=== PATIENT | male | born 2000 | race Hispanic/Latino ===

== ENCOUNTER 2025-01-10 12:19 | Emergency (ER) | payer OTHER, SELFPAY ==
[2025-01-10 12:22] VITALS: BP 127/80
--- NOTE | 2025-01-10 13:02 | ED.GENMED ---
History of Present Illness
General
Chief Complaint: Musculo-Skeletal Complaint
Source: patient
Time Seen by Provider: 01/10/25 12:26
History of Present Illness
History of Present Illness:
24-year-old male with no significant past medical history presents to the ER for evaluation of right foot and ankle pain following an injury that occurred while playing in a soccer game last night. Patient states most of the pain is located in the
dorsal aspect of his foot, increased pain while ambulating. No other injuries were sustained. Denies any previous history of injury or surgery
Past History
Past History
ED Past Medical History: None
ED Past Surgical History: Appendectomy
Social History
Tobacco: Non-smoker
Alcohol: None
Drug: None
Personal: Single
Living: with family
Review of Systems
Review of Systems
All Other Systems: ROS reviewed and negative except as documented in HPI and ROS
Phy Exam
Physical Exam
Physical Exam:
GENERAL: Alert , in no apparent distress
EYE: conjunctiva clear
Head: Normocephalic atraumatic
NECK: Supple,
ENT: mmm.
LUNGS: no acute respiratory distress
NEUROLOGICAL: Alert and oriented
SKIN: Warm and dry, skin intact.
MUSCULOSKELETAL: Right foot/ankle: Mild to moderate soft tissue swelling with ecchymosis over the dorsum of the foot from the second metatarsal through the fourth metatarsal. Diffuse tenderness. Easily palpable pedal and tibial pulse. Cap refill
less than 2 seconds. Sensation grossly intact light touch. No proximal tib-fib's. No calf tenderness or edema. No laxity of the calcaneal tendon. Patient allows for full range of motion.
PSYCH: Normal and appropriate interaction.
Scores
Heart Failure Risk
Heart Failure Risk Score: Not Applicable
Heart Score for Chest Pain Patients
STEMI patient?: Not applicable
Withdrawal Assessment of Alcohol
Withdrawal Assessment Completed?: Not applicable
Course
Orders/Labs/Results
Orders:
Orders
01/10/25 12:23
Ankle, Right 3 view CR [CR Ankle - Right Min 3 Views *] Urgent
Comment:
Reason For Exam: pain, trauma
CR Foot - Right Min 3 Views Urgent
Comment:
Reason For Exam: pain, trauma
01/10/25 13:02
Tres Wrap Right-Treatment ONCE
Crutches-Treatment ONCE
Vital Signs
Initial and Last Documented VS:
Initial Vital Signs
Temp Pulse Resp BP Pulse Ox
97.9 F 67 18 127/80 98
01/10/25 12:22 01/10/25 12:22 01/10/25 12:22 01/10/25 12:22 01/10/25 12:22
Last Documented Vital Signs
Temp Pulse Resp BP Pulse Ox
97.9 F 67 18 127/80 98
01/10/25 12:22 01/10/25 12:22 01/10/25 12:22 01/10/25 12:22 01/10/25 13:04
MDM/Problems Addressed
Differential Diagnosis Includes:
- Sprain
- Contusion
- Fracture
- No concern for neurovascular compromise
MDM/Problems Addressed:
24-year-old male presenting the ER for evaluation of right foot and ankle pain following injury last night while playing soccer. X-ray was ordered and while I read this as no acute fracture radiology felt that there could be a potential
nondisplaced fracture of the proximal phalanx right second digit. Patient did have some tenderness in this area so I did advise about the possibility of a nondisplaced fracture. Encouraged close outpatient follow-up with orthopedics, ice and
elevation, NSAIDs and Tylenol as needed for pain. Patient otherwise stable for discharge and aware of return precautions.
*Radiology
Radiology exam reviewed: preliminary read by ED provider (No acute fracture) and radiology read reviewed (Possible fracture of the proximal phalanx of the second toe)
*Pulse Oximetry
SaO2: 98
Oxygen Mode of Delivery: Room air
Patient hypoxic: no
*Critical Care Note
Total Time (30-74mins, 75-104mins- exclusive of procedures): Not Applicable
ED Attending Note
-
Portions of this chart may have been created with voice recognition software.� Occasional wrong word or��sound alike� substitutions may have occurred due to the inherent limitations of voice recognition software.
Discharge Plan
Departure
Patient Disposition: Home (Routine Discharge)
Date of Disposition: 01/10/25
Time of Disposition: 13:02
Patient with high blood pressure during this ER visit?: No
Discharge Problem:
Sprain of foot, right
Instructions: Sprain (DC)
Referrals:
NONE,* [Family Provider, Internal Medicine]
Daryl Goodwin MD [Active, Orthopedics]
Stand Alone Forms: Return to Work
Interventions
Interventions:
*Nursing Disposition Last Done: 01/10/25 13:20
ED-Musculoskeletal Assessment Last Done: 01/10/25 12:56
Discharge Date and Time
Print Language: LATVIAN
== END 2025-01-10 13:20 | disposition home or self-care (01) ==
LOC: EMR 12:19
PROVIDERS: EMERGENCY PHYSICIAN Student in an Organized Health Care Education/Training Program
DX: S93.601A Unspecified sprain of right foot, initial encounter (principal); X58.XXXA Exposure to other specified factors, initial encounter; Y93.66 Activity, soccer
CPT/HCPCS: 99283; 73610; 73630

== ENCOUNTER 2025-04-04 15:27 | Emergency (ER) | payer OTHER, SELFPAY ==
[2025-04-04 15:35] VITALS: BP 130/81
[2025-04-04 15:58] LABS: Hematocrit 39.5 % (39.0-52.0); Hemoglobin 13.4 g/dL (13.0-18.0); Mean Corp Hgb Conc. 33.9 g/dL (33.0-37.0); Mean Corpuscular Volume 87.6 fL (80.0-94.0); Nucleated Red Blood Cells % 0 % (-); Platelet Count 292 10^3/uL (130-400); Red Cell Dist. Width 13.2 % (11.5-14.5)
[2025-04-04 16:19] LABS: Troponin I 0.017 ng/ml
[2025-04-04 16:20] LABS: ALT (SGPT) 26 U/L (0-50); AST (SGOT) 26 U/L (17-59); Albumin 5.1 g/dl (3.5-5.0); Alkaline Phosphatase 84 U/L (38-126); Blood Urea Nitrogen 8 mg/dl (9-20); Calcium 10.0 mg/dl (8.4-10.2); Carbon Dioxide 24 mmol/L (22-30); Chloride 107 mmol/L (98-107); Glucose 101 mg/dl (70-99); Potassium 4.1 mmol/L (3.5-5.1); Sodium 139 mmol/L (135-145); Total Protein 7.7 g/dl (6.3-8.2); eGFR > 60.00
[2025-04-04 18:46] VITALS: BP 137/79
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
[2025-04-04 20:09] VITALS: BP 137/71
== END 2025-04-04 20:09 | disposition home or self-care (01) ==
LOC: EMR 15:27
PROVIDERS: Student in an Organized Health Care Education/Training Program; EMERGENCY PHYSICIAN Emergency Medicine; FAMILY PHYSICIAN Family Medicine
DX: S20.212A Contusion of left front wall of thorax, initial encounter (principal); W50.0XXA Accidental hit or strike by another person, initial encounter; Y93.75 Activity, martial arts
CPT/HCPCS: 99285; 71046; 80053; 84484; 85025; 93005